=== PATIENT | female | born 1955 | race African-American/Black ===

== ENCOUNTER → 2020-09-09 | Outpatient (CLI) | payer OTHER | END | disposition home or self-care (01) | LOC: COVID19 15:14 | PROVIDERS: ATTEND Family Medicine | DX: U07.1 COVID-19 (principal) ==

== ENCOUNTER 2020-10-29 16:23 | Emergency (ER) | payer OTHER ==
[~2020-10-29] VITALS: Ht 160 cm; Wt 84.8 kg
== END 2020-10-29 20:45 | disposition short-term general hospital (02) ==
LOC: ED 16:23
DX: S32.040A Wedge compression fracture of fourth lumbar vertebra, initial encounter for closed fracture (principal); M25.511 Pain in right shoulder; F17.200 Nicotine dependence, unspecified, uncomplicated; Z88.2 Allergy status to sulfonamides; Z91.040 Latex allergy status; V49.9XXA Car occupant (driver) (passenger) injured in unspecified traffic accident, initial encounter; Y93.89 Activity, other specified; Y92.89 Other specified places as the place of occurrence of the external cause; Y99.8 Other external cause status

== ENCOUNTER → 2021-12-21 | Outpatient (CLI) | payer OTHER | END | disposition home or self-care (01) | LOC: NM 10:00 | PROVIDERS: ATTEND Specialist | DX: S72.142A Displaced intertrochanteric fracture of left femur, initial encounter for closed fracture (principal); F32.A Depression, unspecified; T78.40XA Allergy, unspecified, initial encounter; E11.9 Type 2 diabetes mellitus without complications; X58.XXXA Exposure to other specified factors, initial encounter; Y93.89 Activity, other specified; Y92.89 Other specified places as the place of occurrence of the external cause; Y99.8 Other external cause status; M16.12 Unilateral primary osteoarthritis, left hip ==

== ENCOUNTER 2022-05-24 22:39 | Emergency (ER) | payer OTHER ==
[~2022-05-24] VITALS: Ht 157.4 cm; Wt 68.0 kg
== END 2022-05-25 01:10 | disposition home or self-care (01) ==
LOC: ED 22:39
DX: S01.81XA Laceration without foreign body of other part of head, initial encounter (principal); M54.50 Low back pain, unspecified; M25.512 Pain in left shoulder; M25.552 Pain in left hip; Z88.2 Allergy status to sulfonamides; Z91.040 Latex allergy status; W22.8XXA Striking against or struck by other objects, initial encounter; Y93.89 Activity, other specified; Y92.89 Other specified places as the place of occurrence of the external cause; Y99.8 Other external cause status